=== PATIENT | female | born 1980 | race Caucasian/White ===

== ENCOUNTER 2022-07-12 11:48 | Emergency (ER) | payer MEDICAID, SELFPAY ==
--- NOTE | ~2022-07-12 | US_ITS ---
EXAMINATION: US ABDOMEN LIMITED CLINICAL INFORMATION: Right upper quadrant pain and tenderness. Vomiting.. COMPARISON: None TECHNIQUE: Real-time imaging of the right upper quadrant abdominal viscera. Color Doppler exam was used. FINDINGS: PANCREAS: Normal. LIVER: Questionable echogenic area adjacent to the gallbladder measuring about 1.5 cm. Uncertain whether this is due to technical factors ultrasound imaging at this region versus a focal parenchymal liver lesion such as a hemangioma. Right lobe of liver measures 17 cm. The liver contour is normal. Parenchymal echogenicity is normal. There is no intrahepatic bile duct dilatation. GALLBLADDER: Normal. The gallbladder is physiologically distended without evidence of stones, sludge, polyps, wall thickening or pericholecystic fluid. Ultrasound Mccormick's sign COMMON BILE DUCT: Normal in caliber measuring 0.4 cm in diameter. RIGHT KIDNEY: Normal. No hydronephrosis. No renal calculi or focal parenchymal lesions. The kidney measures 11.0 cm in maximum dimension. FREE FLUID: None. US/US abdomen limited IMPRESSION: No acute abnormality. No gallstone or acute change of gallbladder. No bile duct dilatation.
[2022-07-12 12:22] VITALS: BP 154/82; PULSE 83; RESP 22; TEMP 37.7; O2SAT 100; BMI 30.9
--- NOTE | 2022-07-12 12:22 | ED_ITS ---
HPI - Abdominal Pain General Chief Complaint: Abdominal Pain <Dafne Delacruz CNP - Last Filed: 07/12/22 12:34> Stated Complaint: Vomiting/Pain below breast bone <Dafne Delacruz CNP - Last Filed: 07/12/22 12:34> Time Seen by Provider: 07/12/22 15:47 <Dafne Delacruz CNP - Last Filed: 07/12/22 12:34> Source: patient <Tyler Jurado DO - Last Filed: 07/12/22 17:18> Mode of arrival: ambulatory <Tyler Jurado DO - Last Filed: 07/12/22 17:18> Limitations: no limitations <Tlyer Jurado DO - Last Filed: 07/12/22 17:18> History of Present Illness HPI narrative: 42-year-old female presents emergency department with recurrent vomiting for past 3 days patient is a daily marijuana user. She does also occasionally drink states she has never had this problem past denies chills she was seen front line they found have right quadrant tenderness that was ordered she has had surgery past that he has she denies fevers or chills but is be gging for an IV bag and has her stated previously patient is breathing rapidly has no respiratory distress. <Tyler Jurado DO - Last Filed: 07/12/22 17:18> MD elicited complaint: abdominal pain and other <Tyler Jurado DO - Last Filed: 07/12/22 17:18> Onset (ago): day(s) <Tyler Jurado DO - Last Filed: 07/12/22 17:18> Related Data Home Medications: Previous Rx's Medication Instructions Recorded famotidine 20 mg tablet (Pepcid) 20 mg PO BID PRN Gastritis #60 tabs 07/12/22 ondansetron 4 mg disintegrating 4 mg PO Q6H #14 tabs 07/12/22 tablet <Dafne Delacruz CNP - Last Filed: 07/12/22 12:34> Allergies/Adverse Reactions: Allergies Allergy/AdvReac Type Severity Reaction Status Date / Time No Known Allergies Allergy Verified 07/12/22 12:25 <Dafne Delacruz CNP - Last Filed: 07/12/22 12:34> Review of Systems Review of Systems Review of systems: General: Patient denies any fever chills recent illness or falls Musculoskeletal: Denies back pain or body aches or other injuries HEENT: denies headache, runny nose, ear pain Respiratory: denies shortness of breath, cough Cardiovascular: no chest pain or palpitations : denies dysuria, frequency Abdomen: nausea vomiting abdominal pain Extremities: no swelling, no pain Skin: no diaphoresis <Tyler Jurado DO - Last Filed: 07/12/22 17:18> Yes all other systems are reviewed and are negative <Tyler Jurado DO - Last Filed: 07/12/22 17:18> PMF Social History Social History: Social History Alcohol intake: unknown Smoked in Last 30 Days: No Use of substances other than those prescribed or required for medical reasons: Unknown Patient : No <Dafne Delacruz CNP - Last Filed: 07/12/22 12:34> Physical Exam ED Vital Signs: Vital Signs - 24 hr 07/12/22 12:22 07/12/22 16:00 Temperature 99.9 F Pulse Rate 83 84 Respiratory Rate 22 H 18 Blood Pressure 154/82 H 130/77 Pulse Oximetry 100 100 Oxygen Delivery Method Room Air Room Air BMI result Body Mass Index 30.9 <Dafne Delacruz CNP - Last Filed: 07/12/22 12:34> Vital Signs - 24 hr 07/12/22 12:22 07/12/22 16:00 Temperature 99.9 F Pulse Rate 83 84 Respiratory Rate 22 H 18 Blood Pressure 154/82 H 130/77 Pulse Oximetry 100 100 Oxygen Delivery Method Room Air Room Air BMI result Body Mass Index 30.9 <Tyler Jurado DO - Last Filed: 07/12/22 17:18> General: Well-appearing well-nourished in no signs of distress HEENT: Normocephalic atraumatic Neck: No signs of JVD, no masses no tenderness or lymphadenopathy Cardiovascular: Regular rate and rhythm Respiratory: Clear to auscultation bilaterally Abdomen: Soft RUQ tenderness with guarding positive viramontes sign no masses Extremities: Normal pedal pulses no signs of edema Skin: Dry warm no rashes Back: No tenderness full ROM <DO Duane Ramirez Last Filed: 07/12/22 17:18> Course Course Course Narrative: This is an RME: Additional HPI, ROS, PE not included below will be deferred to primary provider. Patient is a 42 year old female who presents to ED for evaluation of Vomiting multiple times daily, unable to tolerate any PO intake, epigastric constantly. Symptom onset was 2-3 days ago. Yesterday was given a rectal suppository antiemetic, doesn't know name, RX'd from [facility], and was given RX for Tamiflu without testing. Reports dark urine brown orange Denies sick contacts. Denies fevers, chills, chest pain, shortness of breath, diarrhea, constipation. Denied any history of similar symptoms. PE: rapid respirations, states due to pain , able to slow with instruction and denies shortness of breath but slow breathing causes pain to be worse. epigastric/ RUQ tenderness Plan: labs, viral testing, Ondansetron sublingual, RUQ US. placed back in waiting room pending bed availability <Dafne Delacruz SOAP MAKER - Last Filed: 07/12/22 12:34> Medical Decision Making Medical Decision Making [facility] Narrative: Will send patient for an ultrasound make sure this is include status could be gastritis again Pepcid fluids Haldol and Benadryl for her nausea. 1715 Labs US are all okay other than elevated WBC likely related to demargination due to vomiting. She feels much better I do think this is related to marijuana use. I did spend 10 minutes with the patient explaining cannabis hyperemesis. She was agreeeable to going home. I will give some maalox and send home. <Tyler Jurado DO - Last Filed: 07/12/22 17:18> Differential Diagnosis Differential Diagnoses: The differential diagnosis associated with the presentation includes <Tyler Jurado DO - Last Filed: 07/12/22 17:18> this could be gastritis current vomiting pancreatitis hepatitis cannabis hyperemesis dehydration cholecystitis <Tyler Jurado DO - Last Filed: 07/12/22 17:18> Admission/Observation Consideration of admission/observation: Escalation of care including admission/observation considered <Tyler Jurado DO - Last Filed: 07/12/22 17:18> Lab Data [facility] Lab Attestation statement: I reviewed the patient's lab results. <Tyler Jurado DO - Last Filed: 02/14/23 17:18> Result Diagrams: 07/12/22 13:18 07/12/22 13:18 <Dafne Delacruz, SOAP MAKER - Last Filed: 07/12/22 12:34> Labs: Lab Results 07/12/22 07/12/22 07/12/22 Range/Units 13:18 13:18 13:18 WBC 17.6 H (4.8-10.8) X10*3/uL RBC 4.28 (4.20-5.50) X10*6/uL Hgb 13.6 (12.0-16.0) g/dl Hct 39.4 (37.0-47.0) % MCV 92.1 (80.0-98.0) fL MCH 31.8 (27.0-33.0) pg MCHC 34.5 (31.0-35.0) g/dl RDW 11.9 (11.0-16.0) % Plt Count 328 (160-400) X10*3/uL MPV 10.2 (9.4-12.3) fL Immature Gran % (Auto) 0.4 (0.0-0.4) % Neut % (Auto) 80.1 H (45-73) % Lymph % (Auto) 13.2 L (20-40) % [place] % (Auto) 6.0 (2-11) % Eos % (Auto) 0.1 (0-4) % Baso % (Auto) 0.2 (0-2) % Lymph # (Auto) 2.3 (1.2-4.9) X10*3/uL [place] # (Auto) 1.1 (0.1-1.2) X10*3/uL Eos # (Auto) 0.0 (0.0-0.4) X10*3/uL Baso # (Auto) 0.0 (0.0-0.2) X10*3/uL Abs Immat Gran (auto) 0.07 H (0.00-0.03) X10*3/uL Absolute Neuts (auto) 14.1 H (2.0-8.3) x10*3/uL Absolute Nucleated RBC 0.000 (0.0-0.012) X10*3/uL Nucleated RBC % (auto) 0.0 (0.0-0.2) /100WBC Sodium 143 (135-145) mmol/L Potassium 3.4 (3.3-5.1) mmol/L Chloride 102 (96-108) mmol/L Carbon Dioxide 23 (22-29) mmol/L Anion Gap 21 H (12-20) BUN 14 (9-16) mg/dL Creatinine 0.76 (0.5-1.4) mg/dL Estim Creat Clear Calc 99.6 Estimated GFR > 60 Random Glucose 122 H (60-115) mg/dL Calcium 10.0 (8.4-10.2) mg/dL Magnesium 1.6 (1.6-2.6) mg/dL Total Bilirubin 0.8 (0.0-1.0) mg/dL AST 25 (5-31) U/L ALT 19 (0-31) U/L Alkaline Phosphatase 88 (39-117) U/L Total Protein 7.5 (6.5-8.0) g/dL Albumin 5.1 H (3.5-5.0) g/dL Lipase 21 (8-78) U/L COVID-19 (PATSY) (Negative) COVID-19 Clin Com Influenza Type A (LEDA) Negative (Negative) Influenza Type B (LEDA) Negative (Negative) Influenza A & B Note See Note 07/12/22 Range/Units 13:18 WBC (4.8-10.8) X10*3/uL RBC (4.20-5.50) X10*6/uL Hgb (12.0-16.0) g/dl Hct (37.0-47.0) % MCV (80.0-98.0) fL MCH (27.0-33.0) pg MCHC (31.0-35.0) g/dl RDW (11.0-16.0) % Plt Count (160-400) X10*3/uL MPV (9.4-12.3) fL Immature Gran % (Auto) (0.0-0.4) % Neut % (Auto) (45-73) % Lymph % (Auto) (20-40) % [place] % (Auto) (2-11) % Eos % (Auto) (0-4) % Baso % (Auto) (0-2) % Lymph # (Auto) (1.2-4.9) X10*3/uL [place] # (Auto) (0.1-1.2) X10*3/uL Eos # (Auto) (0.0-0.4) X10*3/uL Baso # (Auto) (0.0-0.2) X10*3/uL Abs Immat Gran (auto) (0.00-0.03) X10*3/uL Absolute Neuts (auto) (2.0-8.3) x10*3/uL Absolute Nucleated RBC (0.0-0.012) X10*3/uL Nucleated RBC % (auto) (0.0-0.2) /100WBC Sodium (135-145) mmol/L Potassium (3.3-5.1) mmol/L Chloride (96-108) mmol/L Carbon Dioxide (22-29) mmol/L Anion Gap (12-20) BUN (9-16) mg/dL Creatinine (0.5-1.4) mg/dL Estim Creat Clear Calc Estimated GFR Random Glucose (60-115) mg/dL Calcium (8.4-10.2) mg/dL Magnesium (1.6-2.6) mg/dL Total Bilirubin (0.0-1.0) mg/dL AST (5-31) U/L ALT (0-31) U/L Alkaline Phosphatase (39-117) U/L Total Protein (6.5-8.0) g/dL Albumin (3.5-5.0) g/dL Lipase (8-78) U/L COVID-19 (PATSY) Negative (Negative) COVID-19 Clin Com See Note Influenza Type A (LEDA) (Negative) Influenza Type B (LEDA) (Negative) Influenza A & B Note <Dafne Delacruz, SOAP MAKER - Last Filed: 07/12/22 12:34> Lab Results 07/12/22 07/12/22 07/12/22 Range/Units 13:18 13:18 13:18 WBC 17.6 H (4.8-10.8) X10*3/uL RBC 4.28 (4.20-5.50) X10*6/uL Hgb 13.6 (12.0-16.0) g/dl Hct 39.4 (37.0-47.0) % MCV 92.1 (80.0-98.0) fL MCH 31.8 (27.0-33.0) pg MCHC 34.5 (31.0-35.0) g/dl RDW 11.9 (11.0-16.0) % Plt Count 328 (160-400) X10*3/uL MPV 10.2 (9.4-12.3) fL Immature Gran % (Auto) 0.4 (0.0-0.4) % Neut % (Auto) 80.1 H (45-73) % Lymph % (Auto) 13.2 L (20-40) % [place] % (Auto) 6.0 (2-11) % Eos % (Auto) 0.1 (0-4) % Baso % (Auto) 0.2 (0-2) % Lymph # (Auto) 2.3 (1.2-4.9) X10*3/uL [place] # (Auto) 1.1 (0.1-1.2) X10*3/uL Eos # (Auto) 0.0 (0.0-0.4) X10*3/uL Baso # (Auto) 0.0 (0.0-0.2) X10*3/uL Abs Immat Gran (auto) 0.07 H (0.00-0.03) X10*3/uL Absolute Neuts (auto) 14.1 H (2.0-8.3) x10*3/uL Absolute Nucleated RBC 0.000 (0.0-0.012) X10*3/uL Nucleated RBC % (auto) 0.0 (0.0-0.2) /100WBC Sodium 143 (135-145) mmol/L Potassium 3.4 (3.3-5.1) mmol/L Chloride 102 (96-108) mmol/L Carbon Dioxide 23 (22-29) mmol/L Anion Gap 21 H (12-20) BUN 14 (9-16) mg/dL Creatinine 0.76 (0.5-1.4) mg/dL Estim Creat Clear Calc 99.6 Estimated GFR > 60 Random Glucose 122 H (60-115) mg/dL Calcium 10.0 (8.4-10.2) mg/dL Magnesium 1.6 (1.6-2.6) mg/dL Total Bilirubin 0.8 (0.0-1.0) mg/dL AST 25 (5-31) U/L ALT 19 (0-31) U/L Alkaline Phosphatase 88 (39-117) U/L Total Protein 7.5 (6.5-8.0) g/dL Albumin 5.1 H (3.5-5.0) g/dL Lipase 21 (8-78) U/L COVID-19 (PATSY) (Negative) COVID-19 Clin Com Influenza Type A (LEDA) Negative (Negative) Influenza Type B (LEDA) Negative (Negative) Influenza A & B Note See Note 07/12/22 Range/Units 13:18 WBC (4.8-10.8) X10*3/uL RBC (4.20-5.50) X10*6/uL Hgb (12.0-16.0) g/dl Hct (37.0-47.0) % MCV (80.0-98.0) fL MCH (27.0-33.0) pg MCHC (31.0-35.0) g/dl RDW (11.0-16.0) % Plt Count (160-400) X10*3/uL MPV (9.4-12.3) fL Immature Gran % (Auto) (0.0-0.4) % Neut % (Auto) (45-73) % Lymph % (Auto) (20-40) % [place] % (Auto) (2-11) % Eos % (Auto) (0-4) % Baso % (Auto) (0-2) % Lymph # (Auto) (1.2-4.9) X10*3/uL [place] # (Auto) (0.1-1.2) X10*3/uL Eos # (Auto) (0.0-0.4) X10*3/uL Baso # (Auto) (0.0-0.2) X10*3/uL Abs Immat Gran (auto) (0.00-0.03) X10*3/uL Absolute Neuts (auto) (2.0-8.3) x10*3/uL Absolute Nucleated RBC (0.0-0.012) X10*3/uL Nucleated RBC % (auto) (0.0-0.2) /100WBC Sodium (135-145) mmol/L Potassium (3.3-5.1) mmol/L Chloride (96-108) mmol/L Carbon Dioxide (22-29) mmol/L Anion Gap (12-20) BUN (9-16) mg/dL Creatinine (0.5-1.4) mg/dL Estim Creat Clear Calc Estimated GFR Random Glucose (60-115) mg/dL Calcium (8.4-10.2) mg/dL Magnesium (1.6-2.6) mg/dL Total Bilirubin (0.0-1.0) mg/dL AST (5-31) U/L ALT (0-31) U/L Alkaline Phosphatase (39-117) U/L Total Protein (6.5-8.0) g/dL Albumin (3.5-5.0) g/dL Lipase (8-78) U/L COVID-19 (PATSY) Negative (Negative) COVID-19 Clin Com See Note Influenza Type A (LEDA) (Negative) Influenza Type B (LEDA) (Negative) Influenza A & B Note <Tyler Jurado, DO - Last Filed: 07/12/22 17:18> Medications Administered Discontinued Medications Generic Name Dose Route Start Last Admin Trade Name Freq PRN Reason Stop Dose Admin Diphenhydramine HCl 25 mg 07/12/22 15:54 07/12/22 16:17 Diphenhydramine Hcl 50 Mg/Ml Vial IVPUSH 07/12/22 15:55 25 mg ONCE ONE Administration Famotidine 20 mg 07/12/22 15:54 07/12/22 16:17 Famotidine/Pf 20 Mg/2 Ml Vial IVPUSH 07/12/22 15:55 20 mg ONCE ONE Administration Haloperidol Lactate 5 mg 07/12/22 15:54 07/12/22 16:18 Haloperidol Lactate 5 Mg/Ml Vial IVPUSH 07/12/22 15:55 5 mg STAT STA Administration Sodium Chloride 1,000 mls @ 999 mls/hr 07/12/22 16:00 07/12/22 16:13 Ns IV 07/12/22 17:00 999 mls/hr .Q1H1M BHASKAR Administration Ketorolac Tromethamine 15 mg 02/14/23 15:54 07/12/22 16:18 Ketorolac Tromethamine 15 Mg/Ml Vial IVPUSH 07/12/22 15:55 15 mg ONCE ONE Administration Ondansetron HCl 4 mg 07/12/22 12:27 07/12/22 12:32 Ondansetron Odt 4 Mg Tab.Rapdis TRANSLINGU 07/12/22 12:28 4 mg ONCE ONE Administration <Dafne Delacruz CNP - Last Filed: 07/12/22 12:34> Medications Administered Discontinued Medications Generic Name Dose Route Start Last Admin Trade Name Freq PRN Reason Stop Dose Admin Diphenhydramine HCl 25 mg 07/12/22 15:54 07/12/22 16:17 Diphenhydramine Hcl 50 Mg/Ml Vial IVPUSH 07/12/22 15:55 25 mg ONCE ONE Administration Famotidine 20 mg 07/12/22 15:54 07/12/22 16:17 Famotidine/Pf 20 Mg/2 Ml Vial IVPUSH 07/12/22 15:55 20 mg ONCE ONE Administration Haloperidol Lactate 5 mg 07/12/22 15:54 07/12/22 16:18 Haloperidol Lactate 5 Mg/Ml Vial IVPUSH 07/12/22 15:55 5 mg STAT STA Administration Sodium Chloride 1,000 mls @ 999 mls/hr 07/12/22 16:00 07/12/22 16:13 Ns IV 07/12/22 17:00 999 mls/hr .Q1H1M BHASKAR Administration Ketorolac Tromethamine 15 mg 07/12/22 15:54 07/12/22 16:18 Ketorolac Tromethamine 15 Mg/Ml Vial IVPUSH 07/12/22 15:55 15 mg ONCE ONE Administration Ondansetron HCl 4 mg 07/12/22 12:27 07/12/22 12:32 Ondansetron Odt 4 Mg Tab.Rapdis TRANSLINGU 07/12/22 12:28 4 mg ONCE ONE Administration <Tyler Jurado DO - Last Filed: 07/12/22 17:18> Discharge Plan Discharge Clinical Impression: Gastritis, Acute dehydration <Dafne Delacruz CNP - Last Filed: 07/12/22 12:34> Patient Disposition: Home, Self-Care <Dafne Delacruz CNP - Last Filed: 07/12/22 12:34> Instructions: Gastritis (ED), Dehydration (ED), Acute Nausea and Vomiting (ED) <Dafne Delacruz CNP - Last Filed: 07/12/22 12:34> Additional Instructions: Please stop smoking marijuana. Your labs and US were all normal. Please call to follow up with your doctor. <Dafne Delacruz CNP - Last Filed: 07/12/22 12:34> Prescriptions: New famotidine [Pepcid] 20 mg tablet 20 mg PO BID PRN (Reason: Gastritis) Qty: 60 0RF ondansetron 4 mg tablet,disintegrating 4 mg PO Q6H Qty: 14 0RF <Dafne Delacruz CNP - Last Filed: 07/12/22 12:34>
[2022-07-12] MEDS: Ondansetron ODT 4 MG TAB.RAPDIS TRANSLINGU (12:32)
[2022-07-12 13:25] LABS: MANUAL DIFF FLAG NO
[2022-07-12 13:36] LABS: Basophils Percent Auto 0.2 % (0-2); Eosinophils Percent Auto 0.1 % (0-4); Hematocrit 39.4 % (37.0-47.0); Hemoglobin 13.6 g/dl (12.0-16.0); Imm Gran Abs Auto 0.07 X10*3/uL (0.00-0.03); Imm Gran Pct Auto 0.4 % (0.0-0.4); Lymphocytes Absolute Auto 2.3 X10*3/uL (1.2-4.9); Lymphocytes Percent Auto 13.2 % (20-40); Mean Corpuscular HGB Conc 34.5 g/dl (31.0-35.0); Mean Corpuscular Hemoglobin 31.8 pg (27.0-33.0); Mean Corpuscular Volume 92.1 fL (80.0-98.0); Mean Platelet Volume 10.2 fL (9.4-12.3); Monocytes Absolute Auto 1.1 X10*3/uL (0.1-1.2); Neutrophils Absolute Auto 14.1 x10*3/uL (2.0-8.3); Neutrophils Percent Auto 80.1 % (45-73); Platelet Count 328 X10*3/uL (160-400); Red Blood Count 4.28 X10*6/uL (4.20-5.50); Red Cell Distribution Width 11.9 % (11.0-16.0); White Blood Count 17.6 X10*3/uL (4.8-10.8)
[2022-07-12 13:50] LABS: COVID-19 Test Negative (Negative); IDNOW Serial# 16C4AD1C; IDNOW Serial# BCCEAD1C; Influenza A Negative (Negative); Influenza B2 Negative (Negative)
[2022-07-12 13:52] LABS: Alanine Aminotransferase 19 U/L (0-31); Albumin Level 5.1 g/dL (3.5-5.0); Alkaline Phosphatase 88 U/L (39-117); Anion Gap 21 (12-20); Aspartate Amino Transferase 25 U/L (5-31); Bilirubin Total 0.8 mg/dL (0.0-1.0); Blood Urea Nitrogen 14 mg/dL (9-16); Carbon Dioxide 23 mmol/L (22-29); Chloride 102 mmol/L (96-108); Creatinine Clr Calc Pharmacy 99.6; Estimated Glomerular Filt Rate > 60; Glucose Random 122 mg/dL (60-115); Lipase 21 U/L (8-78); Magnesium 1.6 mg/dL (1.6-2.6); Potassium 3.4 mmol/L (3.3-5.1); Sodium 143 mmol/L (135-145); Total Protein 7.5 g/dL (6.5-8.0)
[2022-07-12 16:00] VITALS: BP 130/77; PULSE 84; RESP 18; O2SAT 100
[2022-07-12] MEDS: 0.9 % Sodium Chloride 1,000 ML 999 ML IV (16:13)
[2022-07-12] MEDS: diphenhydrAMINE HCL 50 MG/ML VIAL 25 MG IVPUSH (16:17)
[2022-07-12] MEDS: Famotidine/PF 20 MG/2 ML VIAL IVPUSH (16:17)
[2022-07-12] MEDS: Haloperidol Lactate 5 MG/ML VIAL IVPUSH (16:18)
[2022-07-12] MEDS: Ketorolac Tromethamine 15 MG/ML VIAL IVPUSH (16:18)
[2022-07-12] MEDS: Magnesium Hydrox/Alum Hydrox 30 ML ORAL.SUSP PO (19:07)
== END 2022-07-12 19:20 | disposition home or self-care (01) ==
PROVIDERS: Nurse Practitioner Family; Emergency Provider Student in an Organized Health Care Education/Training Program
DX: K29.70 Gastritis, unspecified, without bleeding (principal); E86.0 Dehydration; Z20.822 Contact with and (suspected) exposure to COVID-19; Z20.828 Contact with and (suspected) exposure to other viral communicable diseases; Z79.899 Other long term (current) drug therapy
CPT/HCPCS: 76705; 80053; 83690; 83735; 85025; 87502; 87635; 96361; 96374; 96375; 99284; 99285; J1200; J1885